=== PATIENT | female | born 1945 | race Caucasian/White ===

== ENCOUNTER 2018-12-12 12:19 | Inpatient (IN) | payer MEDICARE, OTHER ==
[~2018-12-12] VITALS: Ht 162.6 cm; Wt 77.6 kg
[2018-12-12] MEDS ORDERED: ALEN70TA3 GT (12:40)
[2018-12-12] MEDS ORDERED: MULT-24 GT (12:40)
[2018-12-12] MEDS ORDERED: ACET-2605 GT (12:40)
[2018-12-12] MEDS ORDERED: DOCU50LI GT (12:40)
[2018-12-12] MEDS ORDERED: ACET650S26 GT (12:40)
[2018-12-12] MEDS ORDERED: NA P133E RC (12:40)
[2018-12-12] MEDS ORDERED: SENN-168 GT (12:40)
[2018-12-12] MEDS ORDERED: TRAM50TA2 GT (12:40)
[2018-12-12] MEDS ORDERED: BISA10SU8 RC (12:40)
[2018-12-12] MEDS ORDERED: BACL10TA GT (12:40)
[2018-12-12] MEDS ORDERED: ZINC220C8 GT (12:40)
[2018-12-12] MEDS ORDERED: LACT-96 GT (12:40)
[2018-12-12] MEDS ORDERED: ACID1TAB12 GT (12:40)
[2018-12-12] MEDS ORDERED: IPRA3AMP23 IH (12:40)
[2018-12-12] MEDS ORDERED: AMIN30LI27 GT (12:40)
[2018-12-12] MEDS ORDERED: VIT500LI GT (12:40)
[2018-12-12] MEDS ORDERED: VITA100D6 GT (12:40)
--- NOTE | 2018-12-12 12:49 | NUR ---
CALLED FOR TELE BED
[2018-12-12] MEDS ORDERED: IV NS 0.9% 1,000 ML BAG IV ONE (13:00)
[2018-12-12 13:12] LABS: BASOPHILS # (AUTO) 0.1 /CMM (0.0-0.2); BASOPHILS % (AUTO) 0.4 % (0.0-2.0); HEMATOCRIT 35 % (33-45); HEMOGLOBIN 11.6 g/dL (11.5-14.8); LYMPHOCYTES # (AUTO) 0.8 /CMM (0.8-4.8); LYMPHOCYTES % (AUTO) 4.8 % (20.0-44.0); MEAN CORPUSCULAR HGB CONC 33 g/dl (31.0-36.0); MEAN CORPUSCULAR VOLUME 93 fL (82-100); MONOCYTES # (AUTO) 0.8 /CMM (0.1-1.30); MONOCYTES % (AUTO) 4.8 % (2.0-12.0); PLATELET COUNT (AUTO) 216 /CMM (150-450); RED BLOOD CELL COUNT(AUTO) 3.74 MIL/uL (4.0-5.2); WHITE BLOOD COUNT (AUTO) 16.7 K/uL (4.3-11.0)
[2018-12-12 13:18] LABS: CALCIUM, SERUM 8.7 mg/dL (8.5-10.1); CARBON DIOXIDE 27 mmol/L (21-32); CHLORIDE 103 mmol/L (98-107); CREATININE 0.8 mg/dL (0.6-1.3); GLUCOSE 128 mg/dL (74-106); SODIUM SERUM 141 mmol/L (136-145); UREA NITROGEN, BLOOD 43 mg/dL (7-18)
[2018-12-12 13:25] LABS: APPEARANCE,URINE Clear (CLEAR); BILIRUBIN,URINE Negative (NEGATIVE); BLOOD, URINE Negative Ery/uL (NEGATIVE); COLOR,URINE Yellow (YELLOW); KETONES,URINE Negative (NEGATIVE); LEUKOCYTE ESTERASE ,URINE Negative (NEGATIVE); NITRITE, URINE Negative (NEGATIVE); PH,URINE 5.5 (5.0-8.0); PROTEIN,URINE 100 mg/dl (NEGATIVE); UGLUCOSE Negative (NEGATIVE); UROBILINOGEN,URINE 0.2 EU/dL (0.2)
[2018-12-12 13:36] LABS: BACTERIA,URINE Few /HPF (None Seen)
[2018-12-12 13:37] LABS: RBC,URINE 0-3 /HPF (0-2); SQUAMOUS EPITHELIAL CELL,UR Rare /HPF (None Seen)
[2018-12-12 13:39] LABS: ALANINE AMINOTRANSFERASE 28 U/L (12-78); ALBUMIN 3.2 g/dL (3.4-5.0); ALKALINE PHOSPHATASE 114 U/L (46-116); ASPARTATE AMINOTRANSFERASE 19 U/L (15-37); BILIRUBIN,DIRECT 0.1 mg/dL (0.0-0.2); BILIRUBIN,TOTAL 0.2 mg/dL (0.2-1.0); TOTAL PROTEIN, SERUM 7.9 g/dL (6.4-8.2)
--- NOTE | 2018-12-12 13:41 | NUR ---
GOT BED [id number]
--- NOTE | 2018-12-12 13:41 | NUR ---
AGUSTIN BLUM [phone] PAGED
--- NOTE | 2018-12-12 14:16 | NUR ---
REPORT GIVEN TO JEET RN FOR OSCAR; PT WILL BE TRANSPORTED TO 3RD FLOOR VIA ACLS PROTOCOL
[2018-12-12 16:00] VITALS: BP 133/88
--- NOTE | 2018-12-12 16:00 | NUR ---
ms rn received on bed,nonverbal patient,came in w/ dx of high wbc,not in any form of distress,respirations even and unlabored,no sob noted, lungs are diminished, abdomen soft positive bowel sounds, no s/s of infection noted. bilateral lower extremities contracted,will monitor patient's condition.all needs attended.
--- NOTE | 2018-12-12 18:00 | NUR ---
ms rn was seen by dr. davey gray/ orders made and carried out.
[2018-12-12] MEDS: IV NS 0.9% 1,000 ML IV SCH (18:06)
--- NOTE | 2018-12-12 18:52 | NUR ---
MS RN ON BED, NO DISTRESS NOTED ALL NEEDS ATTENDED.
--- NOTE | 2018-12-12 19:50 | NUR ---
RN NOTES RECEIVED PATIENT, RESTING COMFORTABLY, NON VERBAL, NOT IN ANY FORM OF DISTRESS, KEPT CLEAN DRY AND COMFORTABLE, ALL SAFETY MEASURES IN PLACED, BED IN LOW LOCKED POSITION, ASPIRATION PRECAUTION OBSERVED, WILL CONTINUE TO MONITOR ACCORDINGLY.
[2018-12-12 20:00] VITALS: BP 119/74
[2018-12-12] MEDS ORDERED: CEFTRIAXONE 1 G in IV D5W 50 ML IV SCH (20:00)
[2018-12-12] MEDS: DOXYCYCLINE HYCLATE (100 MG) 100 MG TABLET GT SCH (21:36)
--- NOTE | 2018-12-12 21:40 | NUR ---
RN NOTES NO ABDOMINAL DISTENTION NOTED, STARTED GT FEEDING AT 21:40, WILL CONTINUE TO MONITOR.
[2018-12-12] MEDS: JEVITY 1.2 CAL 1,000 ML BOTTLE GT PRN (21:49)
[2018-12-12] MEDS ORDERED: CEFTRIAXONE 1 G VIAL ONE (22:22)
[2018-12-13 01:03] VITALS: BP 111/69
[2018-12-13 04:00] VITALS: BP 114/80
[2018-12-13] MEDS: IV NS 0.9% 1,000 ML IV SCH ×2 (06:10→21:50)
--- NOTE | 2018-12-13 07:15 | NUR ---
TELE/RN NOTE THE PATIENT IS RECEIVED IN BED. NOT ALERT OR ORIENTED. PATIENT IS NON-VERBAL. IN ROOM AIR. NO MANIFESTATION OF SOB. RESPIRATION REGULAR AND UNLABORED. IN NO APPARENT DISTRESS. EXTERNAL TELE BOX READING SR 97. RAC G 20 PATENT AND NORMAL SALINE INFUSING AT 75ML/HR. NO S/S INFILTRATION NOTED. GT FEEDING ON JEVITY 1.2 AT 75ML/HR. ABDOMEN SOFT AND NON-DISTENDED. ACTIVE BOWEL SOUNDS NOTED IN ALL 4 QUADS. BED LOW AND LOCKED. SIDE RAILS UP X3. CALL LIGHT WITHIN REACH. WILL CONTINUE TO MONITOR.
--- NOTE | 2018-12-13 07:29 | NUR ---
RN NOTES PATIENT, RESTING COMFORTABLY, NON VERBAL, NOT IN ANY FORM OF DISTRESS, KEPT CLEAN DRY AND COMFORTABLE, ALL SAFETY MEASURES IN PLACED, BED IN LOW LOCKED POSITION, ASPIRATION PRECAUTION OBSERVED, ENDORSED TO AM NURSE FOR CONTINUITY OF CARE.
[2018-12-13 08:00] VITALS: BP 128/76
[2018-12-13] MEDS: DOXYCYCLINE HYCLATE (100 MG) 100 MG TABLET GT SCH (08:32)
[2018-12-13 09:00] VITALS: BP 128/67
--- NOTE | 2018-12-13 11:57 | NUR ---
WOUND CARE CONSULT: PT PRESENTS WITH MULTIPLE SKIN ISSUES AND WOUNDS, PRESENT ON ADMISSION INCLUDING STAGE 2 ULCERS TO LEFT BUTTOCK AND SACRUM, LARGE WOUND TO RT FOREARM, LOOSE RT THUMBNAIL WITH DISTAL RAISED LESION, FOOT WOUNDS. RECOMMEND DPM AND SURGICAL CONSULTS. RECOMMENDATIONS MADE FOR WOUND CARE AND SKIN PROTECTION. DISCUSSED WITH NURSING STAFF. FIRST STEP LOW AIRLOSS MATTRESS ORDERED. CURRENT MARYANN SCORE IS 11. PT NOTED TO BE INCONTINENT AND IMMOBILE WITH SEVERE LOWER EXTREMITY CONTRACTURES. Addendum: 12/13/18 at 1200 by DARLINE LINDSEY WNDNU Amended: Links added. Addendum: 12/13/18 at 1201 by DARLINE LINDSEY WNDNU WILL SEE PRN. ANN IN AGREEMENT WITH PLAN OF CARE.
[2018-12-13] MEDS ORDERED: MISCELLANEOUS MED 1 EA EA GT PRN (12:00)
[2018-12-13] MEDS ORDERED: NA PHOS,M-B/NA PHOS,DI-BA 1 EA ENEMA RC PRN (12:00)
[2018-12-13] MEDS ORDERED: ACETAMINOPHEN 650 MG/20.3 ML UDC GT PRN (12:00)
[2018-12-13] MEDS ORDERED: IPRATROPIUM NEB FS 0.5 MG/2.5 ML AMPUL.NEB NEB PRN (12:00)
[2018-12-13] MEDS ORDERED: BISACODYL SUPP (10 MG) 10 MG/SUPP.RECT SUPP.RECT RC PRN (12:00)
[2018-12-13] MEDS ORDERED: ALBUTEROL FS 2.5 MG/0.5 ML VIAL.NEB NEB PRN (12:00)
[2018-12-13] MEDS: BACLOFEN (10 MG) 10 MG TABLET GT SCH ×2 (12:54→16:42)
[2018-12-13] MEDS: Z GUARD REMEDY 2 OZ OINT TP SCH (13:07)
[2018-12-13] MEDS: HYDROGEL DRESSING 90 GM TUBE TP SCH (13:07)
[2018-12-13] MEDS ORDERED: FEE PK DOSING 1 MIN EA MC ONE (15:49)
[2018-12-13 16:00] VITALS: BP 130/74
[2018-12-13] MEDS ORDERED: VANCOMYCIN 1 GM in IV D5W 250 ML IV SCH (16:00)
[2018-12-13] MEDS: PROSOURCE / PROSTAT (PYXIS) 30 ML UDC GT SCH (16:42)
--- NOTE | 2018-12-13 18:58 | NUR ---
MS/RN NOTE THE PATIENT NOT NON-VERBAL, NON ALERT OR ORIENTED. IN ROOM AIR AND SATURATION IS AT 96%. NO MANIFESTATION OF DISTRESS NOTED. RAC G 20 PATENT AND NORMAL SALINE INFUSING AT 75ML/HR AND NO S/S INFILTRATION NOTED. THE PATIENT TOLERATED JEVITY 1.2 FEEDING 75ML/HR WITH NO RESIDUAL. ABDOMEN SOFT AND NON-DISTENDED. GOOD AND GENTLE SKIN CARE RENDERED. ALL NEEDS ATTENDED AND ANTICIPATED. BED LOW AND LOCKED. SIDE RAILS UP X3. CALL LIGHT WITHIN REACH. WILL ENDORSE TO INNOVATION ANALYST.
--- NOTE | 2018-12-13 19:50 | NUR ---
OIL DRILLER NOTE: PATIENT RESTING IN BED, NO ACUTE DISTRESS NOTED. BREATHING EVEN AND UNLABORED, NO SOB NOTED. IV TO RAC IN PLACE, INFUSING NS AT 75ML/HR. TELE READING SR 70. G-TUBE IN PLACE, WITH 5ML RESIDUAL. HOB ELEVATED. BED LOCKED AND IN LOWEST POSITION, CALL LIGHT IN REACH. WILL CONTINUE TO MONITOR.
[2018-12-13 20:00] VITALS: BP 118/81
[2018-12-13] MEDS: CEFAZOLIN 1 GM in IV D5W 50 ML IV SCH (21:50)
[2018-12-13] MEDS: DOCUSATE SODIUM LIQ 100 MG/10 ML UDC GT SCH (21:50)
[2018-12-13] MEDS: SENNOSIDES 8.6 MG TABLET GT SCH (21:50)
--- NOTE | 2018-12-13 22:30 | NUR ---
MS RN NOTE: PATIENT HAVING LOOSE BM, COLACE AND SENOKOT HELD AT THIS TIME. WILL CONTINUE TO MONITOR.
[2018-12-14] MEDS: JEVITY 1.2 CAL 1,000 ML BOTTLE GT PRN (02:19)
[2018-12-14] MEDS: CEFAZOLIN 1 GM in IV D5W 50 ML IV SCH ×3 (04:45→21:43)
[2018-12-14] MEDS: VANCOMYCIN 0.75 GM in IV D5W 250 ML IV SCH ×2 (05:53→17:32)
--- NOTE | 2018-12-14 06:10 | NUR ---
MS RN NOTE: PATIENT RESTING IN BED, NO ACUTE DISTRESS NOTED. BREATHING EVEN AND UNLABORED, NO SOB NOTED. IV TO RAC IN PLACE, INFUSING NS AT 75ML/HR. G-TUBE IN PLACE, INFUSING JEVITY AT 75ML/HR, HOB ELEVATED. BED LOCKED AND IN LOWEST POSITION, CALL LIGHT IN REACH. WILL ENDORSE TO DAY NURSE TO CONTINUE WITH PLAN OF CARE.
[2018-12-14 06:57] LABS: CALCIUM, SERUM 8.3 mg/dL (8.5-10.1); CARBON DIOXIDE 25 mmol/L (21-32); CHLORIDE 112 mmol/L (98-107); CREATININE 0.5 mg/dL (0.6-1.3); GLUCOSE 126 mg/dL (74-106); POTASSIUM 3.4 mmol/L (3.5-5.1); SODIUM SERUM 147 mmol/L (136-145); UREA NITROGEN, BLOOD 19 mg/dL (7-18)
--- NOTE | 2018-12-14 07:45 | NUR ---
MS RN OPENING NOTES PT IN BED. A/O X1. TOLERATING RA, BREATHING EVEN AND UNLABORED. HOB ELEVATED; ASPIRATION PRECAUTION. NO SIGNS OF PAIN NOTED AT THIS MOMENT. IVF OF NS AT 75ML/HR TO RAC G22, TOLERATING WELL. GT/JEVITY FEEDING AT 75ML/HR, AND FLUSHED WITH WATER, INFUSING WELL. HAD 3X DIARRHEA LAST NIGHT, SPECIMEN SENT TO LABS. FOR WOUND DEBRIDEMENT. DR BLUM CAME IN AND SAW PT ON MORNING ROUNDS, LOOKING FORWARD FOR WOUND DEBRIDEMENT. KEPT BED IN LOWEST, LOCKED POSITION WITH SR X3. CALL LIGHT WITHIN REACH. WILL CONTINUE PLAN OF CARE.
[2018-12-14 08:00] VITALS: BP 143/90
[2018-12-14] MEDS ORDERED: MULTIVITAMINS,THERAGRAN 1 UDTAB TABLET GT SCH (09:00)
[2018-12-14] MEDS ORDERED: ZINC SULFATE 220 MG CAPSULE GT SCH (09:00)
[2018-12-14] MEDS ORDERED: LIDOCAINE 1%-EPI 1:100,000 20 ML VIAL IJ ONE (09:00)
[2018-12-14] MEDS: Z GUARD REMEDY 2 OZ OINT TP SCH (09:35)
[2018-12-14] MEDS: ASCORBIC ACID 500 MG TABLET GT SCH (09:36)
[2018-12-14] MEDS: ACIDOPHILUS/BULGARICUS 1 EACH TAB.CHEW GT SCH (09:36)
[2018-12-14] MEDS: BACLOFEN (10 MG) 10 MG TABLET GT SCH ×3 (09:36→17:25)
[2018-12-14] MEDS: HYDROGEL DRESSING 90 GM TUBE TP PRN (09:36)
[2018-12-14] MEDS: TRAMADOL HCL 50 MG TABLET GT SCH (09:37)
[2018-12-14] MEDS: PROSOURCE / PROSTAT (PYXIS) 30 ML UDC GT SCH ×2 (09:39→17:25)
[2018-12-14] MEDS: HYDROGEL DRESSING 90 GM TUBE TP SCH (09:52)
[2018-12-14] MEDS ORDERED: POTASSIUM CHLORIDE 20 MEQ POWDER PACKET GT SCH (11:30)
[2018-12-14] MEDS: IV NS 0.9% 1,000 ML IV SCH ×2 (12:12→22:59)
--- NOTE | 2018-12-14 13:24 | NUR ---
MS RN NOTES RECEIVED CALL FROM [facility], SPOKE TO RAHEEM. STOOL SPECIMEN THAT WAS SENT TO THEM RESULTED POSITIVE FOR CDIFF. SEN AND MD ODEN MADE MADE AWARE. ORDERED VANCO 250MG Q6H. CONTACT PRECAUTION INITIATED. WILL CONTINUE TO MONITOR.
[2018-12-14] MEDS ORDERED: SILVER NITRATE APPLICATOR 1 EA BOX TP STA (15:42)
[2018-12-14 16:00] VITALS: BP 134/79
--- NOTE | 2018-12-14 16:13 | NUR ---
MS RN NOTES SEEN BY TRESTLEMAN FRIDA ROOT, DEBRIDED RIGHT FOREARM WOUND WITH NECROTIC TISSUE. SPECIMEN TO BE BROUGHT TO LAB FOR PATHOLOGY. AND TRESTLEMAN SWABBED IT FOR CULTURE. DRESSING IN PLACE AND INTACT. WILL CONTINUE TO MONITOR.
--- NOTE | 2018-12-14 16:30 | NUR ---
MS RN NOTE TOOTH CUTTER CLUTCH DEBRIDED THE BUTTOCK WOUND WELL. NO SPECIMEN WAS SENT TO THE LAB. WILL ENDORSE TO NEXT SHIFT NURSE AND WILL CONTINUE TO MONITOR.
[2018-12-14] MEDS: VANCOMYCIN HCL 125 MG/2.5 ML ORAL.SUSP GT SCH ×2 (17:32→23:21)
--- NOTE | 2018-12-14 19:04 | NUR ---
MS RN CLOSING NOTES PT IN BED. A/O X1. TOLERATING RA, BREATHING EVEN AND UNLABORED. HOB ELEVATED. NO SIGNS OF PAIN NOTED AT THIS MOMENT. IVF OF NS AT 75ML/HR TO RAC G22, TOLERATING WELL. GT/JEVITY FEEDING TURNED OFF AT 1750, AND FLUSHED WITH WATER. ALL NEEDS AND CARE ATTENDED. CONTACT ISOLATION OBSERVED FOR CDIFF; HAD 3X DIARRHEA THIS MORNING SHIFT. S/P WOUND DEBRIDEMENT TO RFA AND BUTTOCK CREASE. ON BED IN LOWEST, LOCKED POSITION WITH SR X2. CALL LIGHT WITHIN REACH. WILL ENDORSE TO NEXT SHIFT NURSE FOR [facility].
--- NOTE | 2018-12-14 19:20 | NUR ---
MS RN OPENING NOTES Received patient A/O x1, responsive to stimuli, non verbal. With GTF on hold per schedule. With patent peripheral IV line infusing well as ordered. With RFA covered with clean, dry and intact dressing. On RA, no SOB/respiratory distress noted. No discomfort noted at this time. Kept bed low and locked. Call light at bedside. Will continue to monitor accordingly.
[2018-12-14 20:00] VITALS: BP 138/78
[2018-12-14] MEDS: DOCUSATE SODIUM LIQ 100 MG/10 ML UDC GT SCH (22:19)
[2018-12-14] MEDS: SENNOSIDES 8.6 MG TABLET GT SCH (22:19)
[2018-12-15] VITALS: BP 130/79
[2018-12-15] MEDS: JEVITY 1.2 CAL 1,000 ML BOTTLE GT PRN (02:48)
[2018-12-15 04:00] VITALS: BP 138/102
[2018-12-15 04:38] LABS: CALCIUM, SERUM 8.1 mg/dL (8.5-10.1); CARBON DIOXIDE 25 mmol/L (21-32); CHLORIDE 106 mmol/L (98-107); CREATININE 0.6 mg/dL (0.6-1.3); GLUCOSE 127 mg/dL (74-106); POTASSIUM 3.1 mmol/L (3.5-5.1); SODIUM SERUM 142 mmol/L (136-145); UREA NITROGEN, BLOOD 13 mg/dL (7-18)
[2018-12-15] MEDS: CEFAZOLIN 1 GM in IV D5W 50 ML IV SCH ×3 (05:15→20:46)
[2018-12-15] MEDS: VANCOMYCIN 0.75 GM in IV D5W 250 ML IV SCH ×2 (05:15→17:25)
[2018-12-15] MEDS: VANCOMYCIN HCL 125 MG/2.5 ML ORAL.SUSP GT SCH ×4 (05:16→23:32)
--- NOTE | 2018-12-15 06:54 | NUR ---
MS RN CLOSING NOTES Patient asleep at this time, on RA, no SOB/respiratory distress noted. With patent NGT infusing well @ 75ml/hr as ordered. No abdominal distention noted, No N/V. Still with diarrhea noted. All due meds given as ordered. Wound care done as ordered. All nursing needs attended. Kept bed low and locked, side rails up. Call light at bedside. Endorsed.
[2018-12-15 08:00] VITALS: BP 135/85
--- NOTE | 2018-12-15 08:00 | NUR ---
MS RN OPEN NOTE PT SEEN IN BED. ALERT AND AWAKE RESPONDS TO TOUCH, TOLERATING ROOM AIR. IN NO APPARENT DISTRESS. IV SN INFUSING AT 75 ML/HR. JEVITY INFUSING AT 75 ML PER HOUR. RESIDUAL CHECK PRODUCED LESS THEN 30ML. RFA WOUND DRESSING HAS SMALL AMOUNT OF SANGUINOUS DRAINAGE. BED DOWN AND IN LOCKED POSITION SR X3 CALL LIGHT IN REACH WILL CONT PLAN OF CARE.
[2018-12-15] MEDS: ACIDOPHILUS/BULGARICUS 1 EACH TAB.CHEW GT SCH (09:07)
[2018-12-15] MEDS: ASCORBIC ACID 500 MG TABLET GT SCH (09:07)
[2018-12-15] MEDS: BACLOFEN (10 MG) 10 MG TABLET GT SCH ×3 (09:08→17:24)
[2018-12-15] MEDS: TRAMADOL HCL 50 MG TABLET GT SCH (09:09)
[2018-12-15] MEDS: Z GUARD REMEDY 2 OZ OINT TP SCH (09:11)
[2018-12-15] MEDS: HYDROGEL DRESSING 90 GM TUBE TP PRN (09:12)
[2018-12-15] MEDS: HYDROGEL DRESSING 90 GM TUBE TP SCH (09:13)
[2018-12-15] MEDS: PROSOURCE / PROSTAT (PYXIS) 30 ML UDC GT SCH ×2 (09:14→17:24)
[2018-12-15] MEDS: POTASSIUM CHLORIDE 20 MEQ TAB.PRT.SR PO SCH ×2 (11:14→12:13)
[2018-12-15] MEDS: IV NS 0.9% 1,000 ML IV SCH (12:19)
[2018-12-15 16:00] VITALS: BP 132/81
--- NOTE | 2018-12-15 18:20 | NUR ---
MS/RN NOTE THE PATIENT IN BED. NON-VERBAL. IN NO APPARENT DISTRESS. IN ROOM AIR AND SATURATION IS AT 98%. IN NO APPARENT DISTRESS. RAC G 20 PATENT AND NORMAL SALINE INFUSING AT 75ML/HR. NO S/S INFILTRATION NOTED. PATIENT HAD 2 LARGE BM (WATERY). PATIENT TOLERATED GT FEEDING WELL. ABDOMEN SOFT AND NON-DISTENDED. GOOD AND GENTLE SKIN CARE RENDERED. KEPT CLEAN AND COMFORTABLE. ALL NEEDS ATTENDED AND ANTICIPATED. BED LOW AND LOCKED. SIDE RAILS UP X3 AND PADDED. CALL LIGHT WITHIN REACH. WILL ENDORSE TO MODULAR HOME CREW MEMBER.
--- NOTE | 2018-12-15 19:30 | NUR ---
RN MS OPENING NOTES RECEIVED PATIENT IN BED ASLEEP. AROUSABLE TO TOUCH. ALERT AND ORIENTED X0, PATIENT IS NONVERBAL. BREATHING EVEN AND UNLABORED. NO SOB NOTED. TOLERATING ROOM AIR. NO S/S OF PAIN OR DISCOMFORT. NO FACIAL GRIMACING. IV ON RIGHT AC INTACT AND PATENT. SKIN DRY AND WARM TO TOUCH. AFEBRILE. DRESSINGS INTACT AND DRY. GTUBE INTACT AND PATENT. FEEDING OFF AND WILL BE TURNED ON SCHEDULED TIME. ALL OTHER NEEDS ATTENDED TO. SAFETY MEASURES IN PLACE. CALL LIGHT WITHIN REACH. WILL CONTINUE TO MONITOR.
[2018-12-15 20:00] VITALS: BP 137/75
[2018-12-15] MEDS: DOCUSATE SODIUM LIQ 100 MG/10 ML UDC GT SCH (21:25)
[2018-12-15] MEDS: SENNOSIDES 8.6 MG TABLET GT SCH (21:25)
[2018-12-16] MEDS: IV NS 0.9% 1,000 ML IV SCH ×2 (01:29→04:30)
--- NOTE | 2018-12-16 01:30 | NUR ---
RN MS NOTES IV NS BAG SCANNED NON-ADMINISTERED DUE TO ONE ALREADY HANGED AND INFUSING. WILL REPLACE IF EMPTY.
[2018-12-16] MEDS: CEFAZOLIN 1 GM in IV D5W 50 ML IV SCH ×3 (04:31→21:06)
[2018-12-16] MEDS: JEVITY 1.2 CAL 1,000 ML BOTTLE GT PRN (04:42)
[2018-12-16] MEDS: VANCOMYCIN 0.75 GM in IV D5W 250 ML IV SCH ×2 (05:19→17:32)
[2018-12-16] MEDS: VANCOMYCIN HCL 125 MG/2.5 ML ORAL.SUSP GT SCH ×4 (06:06→23:07)
--- NOTE | 2018-12-16 06:25 | NUR ---
RN MS CLOSING NOTES PATIENT RESTING IN BED. NO ACUTE CHANGES THROUGHOUT SHIFT. BREATHING EVEN AND UNLABORED. NO SOB NOTED. TOLERATING ROOM AIR. NO S/S OF PAIN OR DISCOMFORT. NO FACIAL GRIMACING. IV ON RIGHT AC INTACT AND PATENT. SKIN DRY AND WARM TO TOUCH. AFEBRILE. DRESSINGS INTACT AND DRY. GTUBE INTACT AND PATENT AND INFUSING JEVITY 1.2 AT 75ML/HR. ALL OTHER NEEDS ATTENDED TO. KEPT CLEAN DRY AND COMFORTABLE. SAFETY MEASURES IN PLACE. CALL LIGHT WITHIN REACH. WILL ENDORSE TO ONCOMING NURSE FOR [facility].
[2018-12-16 06:51] LABS: CALCIUM, SERUM 8.7 mg/dL (8.5-10.1); CHLORIDE 109 mmol/L (98-107); CREATININE 0.5 mg/dL (0.6-1.3); GLUCOSE 121 mg/dL (74-106); POTASSIUM 3.6 mmol/L (3.5-5.1); SODIUM SERUM 146 mmol/L (136-145); UREA NITROGEN, BLOOD 14 mg/dL (7-18)
[2018-12-16 06:55] LABS: CARBON DIOXIDE 28 mmol/L (21-32)
--- NOTE | 2018-12-16 07:35 | NUR ---
RN MS OPENING NOTES Received patient on room air, no sob or ventilatory distress noted. Patient remains on GT feeding with jevity 1.2 cc from 2150 to 1750, able to flush gtube with no resistance. IVF remains at 75 mL/hour. Patient's vital sign is stable, patient unable to verbalize needs and does not respond to questions. Safety measures in place.
[2018-12-16 08:00] VITALS: BP 152/78
[2018-12-16] MEDS: ASCORBIC ACID 500 MG TABLET GT SCH (08:24)
[2018-12-16] MEDS: TRAMADOL HCL 50 MG TABLET GT SCH (08:24)
[2018-12-16] MEDS: ACIDOPHILUS/BULGARICUS 1 EACH TAB.CHEW GT SCH (08:24)
[2018-12-16] MEDS: PROSOURCE / PROSTAT (PYXIS) 30 ML UDC GT SCH ×2 (08:25→17:38)
[2018-12-16] MEDS: BACLOFEN (10 MG) 10 MG TABLET GT SCH ×3 (08:25→17:38)
[2018-12-16] MEDS: HYDROGEL DRESSING 90 GM TUBE TP SCH (08:36)
[2018-12-16] MEDS: Z GUARD REMEDY 2 OZ OINT TP SCH (08:38)
[2018-12-16] MEDS: SILVER SULFADIAZINE CREAM 25 GM TUBE TP SCH (08:58)
--- NOTE | 2018-12-16 15:56 | NUR ---
RN MS NOTES CLARIFIED IV FLUIDS ORDER FROM DR. BLUM, PER MD, PT TO CONTINUE ON IV FLUIDS ORDERED.
[2018-12-16 16:00] VITALS: BP 134/72
--- NOTE | 2018-12-16 18:13 | NUR ---
RN MS CLOSING NOTES Patient's IV placed at left hand with a 22 gauge. Patient's old IV at right AC accidentally out. Patient's new IV is infusing well with no blockage. Patient is turned and repositioned q2 hours. Gtube feeding tolerated well, no residuals noted. Medications given as order. Safety measures in place.
[2018-12-16] MEDS ORDERED: IV NS 0.9% 1,000 ML BAG IV PRN (19:00)
[2018-12-16 20:00] VITALS: BP 169/89
[2018-12-16] MEDS ORDERED: IV NS 0.9% 1,000 ML IV PRN (20:00)
--- NOTE | 2018-12-16 21:30 | NUR ---
RN INITIAL NOTES: RECEIVED REPORT FROM CINDY TORRES. PT IN BED, NON VERBAL, NO FACIAL GRIMACE NOTED, APPEARS CALM AND COMFORTABLE, IV ACCESS PATENT AND FLUSHING WELL, INFUSING WITH NS AT 75ML/HR. GTUBE IN PLACED, TURNED ON AT THIS TIME, WITH ORDER FOR JEVITY 1.2 AT 75ML/HR, ON AT 2150 AND OFF AT 1750. S/P WOUND DEBRIDEMENT (BUTTOCKS AND RIGHT ARM) BY ARIELLE GALICIA. DRESSING C/D/I, NO ACTIVE BLEEDING NOTED, OFFLOADED ON PILLOWS. PT ON CDIFF PRECAUTIONS. ON KCI MATTRESS, NOTED WITH CONTRACTED EXTREMITIES. SAFETY PRECAUTIONS FOR FALL INITIATED, CALL LIGHT IN REACH, WILL CONTINUE MONITORING PT.
[2018-12-16] MEDS: SENNOSIDES 8.6 MG TABLET GT SCH (21:38)
[2018-12-16] MEDS: DOCUSATE SODIUM LIQ 100 MG/10 ML UDC GT SCH (21:38)
--- NOTE | 2018-12-16 21:40 | NUR ---
RN NOTES: GTUBE PATENCY AND RESIDUAL CHECK, GTUBE ABLE TO FLUSH WITH WATER WITHOUT ANY RESISTANCE, SOFT ABDOMEN UPON PALPATION WITH ACTIVE BOWEL SOUND HEARD UPON AUSCULTATION. RESIDUAL OBTAINED 10ML.
[2018-12-16 22:16] VITALS: BP 144/79
--- NOTE | 2018-12-16 22:30 | NUR ---
RN INITIAL NOTES: RECEIVED REPORT FROM CINDY TORRES. PT IN BED, NON VERBAL, NO FACIAL GRIMACE NOTED, APPEARS CALM AND COMFORTABLE, IV ACCESS PATENT AND FLUSHING WELL, INFUSING WITH NS AT 75ML/HR. GTUBE IN PLACED, TURNED ON AT THIS TIME, WITH ORDER FOR JEVITY 1.2 AT 75ML/HR, ON AT 2150 AND OFF AT 1750. S/P WOUND DEBRIDEMENT (BUTTOCKS AND RIGHT ARM) BY ARIELLE GALICIA. DRESSING C/D/I, NO ACTIVE BLEEDING NOTED, OFFLOADED ON PILLOWS. PT ON CDIFF PRECAUTIONS. ON KCI MATTRESS, NOTED WITH CONTRACTED EXTREMITIES. SAFETY PRECAUTIONS FOR FALL INITIATED, CALL LIGHT IN REACH, WILL CONTINUE MONITORING PT. Addendum: 12/16/18 at 2302 by WAYNE JOHNSON RN DISREGARD ABOVE DOCUMENTATION WRONG TIME
[2018-12-17] MEDS: JEVITY 1.2 CAL 1,000 ML BOTTLE GT PRN ×2 (03:20→16:49)
[2018-12-17] MEDS: CEFAZOLIN 1 GM in IV D5W 50 ML IV SCH ×3 (04:05→21:37)
[2018-12-17] MEDS: VANCOMYCIN HCL 125 MG/2.5 ML ORAL.SUSP GT SCH ×4 (05:20→23:00)
[2018-12-17] MEDS: VANCOMYCIN 0.75 GM in IV D5W 250 ML IV SCH ×2 (05:20→16:15)
--- NOTE | 2018-12-17 06:31 | NUR ---
RN CLOSING NOTES: PT REMAINS NON VERBAL. IV ACCESS REMAINS PATENT AND FLUSHING WELL INFUSING WITH NS AT 75 ML/HR. GTUBE FEEDING REMAINS TO BE TOLERATED WELL BY PT, RESIDUAL OBTAINED 10ML. JEVITY 1.2 AT 75ML/HR INFUSING AT THIS TIME. ABDOMEN REMAINS SOFT TO TOUCH. WOUND DRESSING REMAINS C/D/I, NO ACTI VE BLEEDING NOTED, PILLOWS PLACED IN BETWEEN PT'S LEGS, PT HAS CONTRACTURES. VS REMAINS STABLE, NEEDS ATTENDED. SAFETY PRECAUTIONS FOR FALL REMAINS ENGAGED, CALL LIGHT IN REACH, WILL ENDORSE TO DAY RN FOR CONTINUITY OF CARE.
--- NOTE | 2018-12-17 07:33 | NUR ---
INITIAL PT IN BED, NON VERBAL, NO FACIAL GRIMACE NOTED, APPEARS CALM AND COMFORTABLE, IV ACCESS PATENT AND FLUSHING WELL, INFUSING WITH NS AT 75ML/HR. G-TUBE IN PLACED, TURNED ON AT THIS TIME, WITH ORDER FOR JEVITY 1.2 AT 75ML/HR, ON AT 2150 AND OFF AT 1750. S/P WOUND DEBRIDEMENT (BUTTOCKS AND RIGHT ARM) BY ARIELLE GALICIA. DRESSING C/D/I, NO ACTIVE BLEEDING NOTED, OFFLOADED ON PILLOWS. PT ON C-DIFF PRECAUTIONS. ON KCI MATTRESS, NOTED WITH CONTRACTED EXTREMITIES. SAFETY PRECAUTIONS FOR FALL INITIATED, CALL LIGHT IN REACH, WILL CONTINUE MONITORING PT.
[2018-12-17 07:39] LABS: BASOPHILS % (AUTO) 0.3 % (0.0-2.0); EOSINOPHILS % (AUTO) 6.1 % (0.0-6.0); HEMATOCRIT 30 % (33-45); HEMOGLOBIN 10.1 g/dL (11.5-14.8); LYMPHOCYTES # (AUTO) 1.9 /CMM (0.8-4.8); LYMPHOCYTES % (AUTO) 16.6 % (20.0-44.0); MEAN CORPUSCULAR HGB CONC 33 g/dl (31.0-36.0); MEAN CORPUSCULAR VOLUME 93 fL (82-100); MONOCYTES # (AUTO) 1.4 /CMM (0.1-1.30); MONOCYTES % (AUTO) 12.2 % (2.0-12.0); NEUTROPHILS # (AUTO) 7.3 /CMM (1.8-8.9); NEUTROPHILS % (AUTO) 64.8 % (43.0-81.0); PLATELET COUNT (AUTO) 235 /CMM (150-450); RED BLOOD CELL COUNT(AUTO) 3.28 MIL/uL (4.0-5.2); WHITE BLOOD COUNT (AUTO) 11.3 K/uL (4.3-11.0)
[2018-12-17 07:55] LABS: CALCIUM, SERUM 8.7 mg/dL (8.5-10.1); CARBON DIOXIDE 28 mmol/L (21-32); CHLORIDE 105 mmol/L (98-107); CREATININE 0.5 mg/dL (0.6-1.3); GLUCOSE 118 mg/dL (74-106); POTASSIUM 3.8 mmol/L (3.5-5.1); SODIUM SERUM 142 mmol/L (136-145); UREA NITROGEN, BLOOD 14 mg/dL (7-18)
[2018-12-17 08:00] VITALS: BP 142/108
[2018-12-17] MEDS: ASCORBIC ACID 500 MG TABLET GT SCH (08:29)
[2018-12-17] MEDS: HYDROGEL DRESSING 90 GM TUBE TP SCH (08:29)
[2018-12-17] MEDS: Z GUARD REMEDY 2 OZ OINT TP PRN ×2 (08:29→08:32)
[2018-12-17] MEDS: ACIDOPHILUS/BULGARICUS 1 EACH TAB.CHEW GT SCH (08:30)
[2018-12-17] MEDS: BACLOFEN (10 MG) 10 MG TABLET GT SCH ×3 (08:30→16:52)
[2018-12-17] MEDS: TRAMADOL HCL 50 MG TABLET GT SCH (08:30)
[2018-12-17] MEDS: PROSOURCE / PROSTAT (PYXIS) 30 ML UDC GT SCH ×2 (08:32→16:52)
[2018-12-17] MEDS: Z GUARD REMEDY 2 OZ OINT TP SCH (08:33)
[2018-12-17] MEDS: SILVER SULFADIAZINE CREAM 25 GM TUBE TP SCH (08:34)
[2018-12-17 16:00] VITALS: BP_SYST 121; BP_SYST 142; BP_DIAS 54; BP_DIAS 68
[2018-12-17 18:00] VITALS: BP 121/59
--- NOTE | 2018-12-17 18:23 | NUR ---
CLOSING PT REMAINS NON VERBAL. IV ACCESS REMAINS PATENT AND FLUSHING WELL INFUSING WITH NS AT TKO RATE. G-TUBE FEEDING REMAINS AND TOLERATED WELL BY PT, RESIDUAL OBTAINED 10ML. JEVITY 1.2 AT 75ML/HR INFUSING AT THIS TIME. ABDOMEN REMAINS SOFT TO TOUCH. WOUND DRESSING REMAINS C/D/I, NO ACTI VE BLEEDING NOTED, PILLOWS PLACED IN BETWEEN PT'S LEGS, PT HAS CONTRACTURES. VS REMAINS STABLE, NEEDS ATTENDED. SAFETY PRECAUTIONS FOR FALL REMAINS ENGAGED, CALL LIGHT IN REACH, WILL ENDORSE TO DAY RN FOR CONTINUITY OF CARE.
--- NOTE | 2018-12-17 19:20 | NUR ---
RN INITIAL NOTES: RECEIVED REPORT FROM KERRI TORRES. PT S/P WOUND DEBRIDEMENT (BUTTOCKS AND RIGHT ARM) DRESSING C/D/I, NO ACTIVE BLEEDING NOTED, OFFLOADED ON PILLOWS. NON VERBAL, AWAKE, NO FACIAL GRIMACE NOTED, APPEARS CALM AND COMFORTABLE, IV ACCESS PATENT AND FLUSHING WELL, ON HL. GTUBE IN PLACED, CURRENTLY OFF AT THIS TIME. WITH ORDER FOR JEVITY 1.2 AT 75ML/HR, ON AT 2150 AND OFF AT 1750. PT ON CDIFF PRECAUTIONS. ON KCI MATTRESS, NOTED WITH CONTRACTED EXTREMITIES. SAFETY PRECAUTIONS FOR FALL INITIATED, CALL LIGHT IN REACH, WILL CONTINUE MONITORING PT.
[2018-12-17 20:00] VITALS: BP 102/58
--- NOTE | 2018-12-17 20:00 | NUR ---
RN NOTES: GTUBE PATENT AND FLUSHING WELL, NO ACTIVE BLEEDING NOTED ON GTUBE SITE, ABDOMEN SOFT WITH ACTIVE BOWEL SOUND HEARD UPON AUSCULTATION . WILL CONTINUE MONITORING PT.
[2018-12-17] MEDS: SENNOSIDES 8.6 MG TABLET GT SCH (21:37)
[2018-12-17] MEDS: DOCUSATE SODIUM LIQ 100 MG/10 ML UDC GT SCH (21:37)
[2018-12-17 22:30] VITALS: BP 129/77
--- NOTE | 2018-12-17 22:37 | NUR ---
PRN TLENOL: , NOTED TO BE IN PAIN, FLACC SCALE UTILIZED, OBTAINED SCORE OF 4/10 PRN TYLENOL ADMINISTERED VIA GTUBE
[2018-12-18] MEDS: CEFAZOLIN 1 GM in IV D5W 50 ML IV SCH ×2 (04:06→12:36)
[2018-12-18] MEDS: VANCOMYCIN 0.75 GM in IV D5W 250 ML IV SCH (05:05)
[2018-12-18] MEDS: VANCOMYCIN HCL 125 MG/2.5 ML ORAL.SUSP GT SCH ×3 (05:06→17:11)
--- NOTE | 2018-12-18 05:25 | NUR ---
RN NOTES: ASSISTED FOLDER SEAMER IN PROVIDING BED BATH TO THE PT, WOUND DRESSING PERFORMED, PT REMAINS CONNECTED TO CONTINUOS PULSE OXIMETRY SOPO2 99-100%, HR 82, RR 17
--- NOTE | 2018-12-18 06:55 | NUR ---
RN CLOSING NOTES: PT REMAINS TO BE NON COMMUNICATIVE, ON 2L OXYGEN, REMAINS CONNECTED TO CONTINUOUS PULSE OXIMETRY SPO2 100% HR 86, APPEARS CALM AND COMFORTABLE, NO FACIAL GRIMACE NOTED. REMAINS WITH G-TUBE FEEDING JEVITY 1.2 AT 75ML/HR. LEFT HAND IV ACCESS REMAINS PATENT AND FLUSHING WELL, ON HL. BLE OFFLOADED. VS REMAINS STABLE, NEEDS ATTENDED. SAFETY PRECAUTIONS FOR FALL REMAINS ENGAGED, CALL LIGHT IN REACH, WILL ENDORSE TO DAY RN FOR CONTINUITY OF CARE.
--- NOTE | 2018-12-18 07:51 | NUR ---
MS RN NOTES PATIENT RECEIVED RESTING INSIDE ROOM. NON-VERBAL. BREATHING EVEN AND UNLABORED. NO ACUTE DISTRESS AT THIS TIME. NO FACIAL GRIMACE OR INDICATIONS OF PAIN NOTED AT THIS TIME. PATIENT CALM AND RELAXED. ONGOING GTF. GT IN PLACE AND PATENT. MAINTAINED ASPIRATION PRECAUTIONS. MAINTAINED ISOLATION PRECAUTIONS. WILL CONTINUE TO MONITOR. BED LOCKED AND IN LOW POSITION. BILATERAL UPPER SIDE RAILS UP AND LOCKED. CALL LIGHT WITHIN EASY REACH
[2018-12-18 08:00] VITALS: BP 145/70
[2018-12-18] MEDS: ASCORBIC ACID 500 MG TABLET GT SCH (08:56)
[2018-12-18] MEDS: PROSOURCE / PROSTAT (PYXIS) 30 ML UDC GT SCH ×2 (08:56→17:12)
[2018-12-18] MEDS: BACLOFEN (10 MG) 10 MG TABLET GT SCH ×3 (08:56→17:11)
[2018-12-18] MEDS: ACIDOPHILUS/BULGARICUS 1 EACH TAB.CHEW GT SCH (08:57)
[2018-12-18] MEDS: TRAMADOL HCL 50 MG TABLET GT SCH (08:57)
[2018-12-18] MEDS: Z GUARD REMEDY 2 OZ OINT TP SCH (08:58)
[2018-12-18] MEDS: SILVER SULFADIAZINE CREAM 25 GM TUBE TP SCH (08:58)
[2018-12-18] MEDS: HYDROGEL DRESSING 90 GM TUBE TP SCH (08:58)
[2018-12-18 10:21] LABS: CALCIUM, SERUM 9.1 mg/dL (8.5-10.1); CARBON DIOXIDE 29 mmol/L (21-32); CHLORIDE 106 mmol/L (98-107); CREATININE 0.5 mg/dL (0.6-1.3); GLUCOSE 112 mg/dL (74-106); POTASSIUM 3.9 mmol/L (3.5-5.1); SODIUM SERUM 143 mmol/L (136-145); UREA NITROGEN, BLOOD 16 mg/dL (7-18)
[2018-12-18 16:00] VITALS: BP 150/76
--- NOTE | 2018-12-18 19:32 | NUR ---
MS RN NOTES PATIENT RESTING INSIDE ROOM. SLEEPING, BREATHING EVEN AND UNLABORED. GTF OFF. TO RESUME AT 2150. PATIENT CALM AND RELAXED. NO CHANGES IN LOC NOTED AT THIS TIME. NO ACUTE DISTRESS NOTED. NO FACIAL GRIMACE. MAINTAINED ASPIRATION PRECAUTIONS. MAINTAINED ISOLATION PRECAUTIONS. PATIENT KEPT CLEAN, DRY AND COMFORTABLE. ASSISTED TO A COMFORTABLE POSITION Q2 WITH POSITIONING PILLOWS FOR CIRCULATION AND COMFORT. ENDORSED TO INCOMING SHIFT FOR [facility]SC[facility].
[2018-12-18 20:00] VITALS: BP 118/87
[2018-12-18] MEDS: DOCUSATE SODIUM LIQ 100 MG/10 ML UDC GT SCH (21:04)
[2018-12-18] MEDS: SENNOSIDES 8.6 MG TABLET GT SCH (21:04)
[2018-12-19] MEDS: VANCOMYCIN HCL 125 MG/2.5 ML ORAL.SUSP GT SCH ×4 (00:02→17:32)
[2018-12-19 06:35] LABS: CALCIUM, SERUM 8.9 mg/dL (8.5-10.1); CARBON DIOXIDE 30 mmol/L (21-32); CHLORIDE 105 mmol/L (98-107); CREATININE 0.5 mg/dL (0.6-1.3); GLUCOSE 110 mg/dL (74-106); POTASSIUM 3.8 mmol/L (3.5-5.1); SODIUM SERUM 141 mmol/L (136-145); UREA NITROGEN, BLOOD 20 mg/dL (7-18)
--- NOTE | 2018-12-19 06:48 | NUR ---
Lying in bed HOB up non verbal to director underwriter sales. o2 @ 2l N/c Jevity 1.2 infusing at 75 cchr no ridual noted N/s itko left hand 22 ga without difficulty. disposable briefs changed. Remains on Isolation for C-Diff. Stll having loose stool. Sacrum, Buttock, upper arm fingers dressings all C/D/I/ Siderails up Call light within reach. bed alarm on.
--- NOTE | 2018-12-19 07:08 | NUR ---
MS RN NOTES PATIENT IN BED NON VERBAL. HOB ELEVATED. NO ACUTE DISTRESS NOTED. BREATHING UNLABORED. NO SOB NOTED. DENIED ANY PAIN AT THIS TIME. IV ACCESS PATENT AND INTACT, NO REDNESS OR SWELLING NOTED. SAFETY MEASURES IN PLACE. CALL LIGHT WITHIN REACH. WILL CONTINUE TO MONITOR ACCORDINGLY.
[2018-12-19 08:00] VITALS: BP 130/70
[2018-12-19] MEDS: HYDROGEL DRESSING 90 GM TUBE TP SCH (08:40)
[2018-12-19] MEDS: Z GUARD REMEDY 2 OZ OINT TP SCH (08:40)
[2018-12-19] MEDS: SILVER SULFADIAZINE CREAM 25 GM TUBE TP SCH (08:41)
[2018-12-19] MEDS: TRAMADOL HCL 50 MG TABLET GT SCH (08:42)
[2018-12-19] MEDS: ASCORBIC ACID 500 MG TABLET GT SCH (08:42)
[2018-12-19] MEDS: BACLOFEN (10 MG) 10 MG TABLET GT SCH ×3 (08:43→16:42)
[2018-12-19] MEDS: ACIDOPHILUS/BULGARICUS 1 EACH TAB.CHEW GT SCH (08:43)
[2018-12-19] MEDS: PROSOURCE / PROSTAT (PYXIS) 30 ML UDC GT SCH ×2 (08:43→16:42)
[2018-12-19] MEDS ORDERED: ALENDRONATE 70 MG TABLET GT SCH (12:00)
[2018-12-19] MEDS: DAKINS QUARTER STRENGTH (0.125%) 480 ML BOTTLE TOP SCH (13:40)
[2018-12-19 16:00] VITALS: BP 134/76
--- NOTE | 2018-12-19 18:52 | NUR ---
MS RN NOTES PATIENT IN BED NON VERBAL. HOB ELEVATED. NO ACUTE DISTRESS NOTED. BREATHING UNLABORED. NO SOB NOTED. NO FACIAL GRIMACING NOTED. DUE MEDICATIONS GIVEN, NO ASE NOTED. NEEDS ATTENDED AND ANTICIPATED. KEPT CLEAN DRY AND COMFORTABLE. IV ACCESS PATENT AND INTACT, NO REDNESS OR SWELLING NOTED. TOLERATED GT FEEDING WELL, NO RESIDUAL NOTED. SAFETY MEASURES IN PLACE. CALL LIGHT WITHIN REACH. WILL CONTINUE TO MONITOR ACCORDINGLY. WILL ENDORSED TO NIGHT NURSE FOR CONTINUITY OF CARE.
--- NOTE | 2018-12-19 19:50 | NUR ---
RN INITIAL NOTES: RECEIVED REPORT FROM NEIL TORRES. NON VERBAL, AWAKE, NO FACIAL GRIMACE NOTED, APPEARS CALM AND COMFORTABLE, IV ACCESS PATENT AND FLUSHING WELL, ON HL.PT S/P WOUND DEBRIDEMENT (BUTTOCKS AND RIGHT ARM) DRESSING C/D/I, NO ACTIVE BLEEDING NOTED, OFFLOADED ON PILLOWS. GTUBE IN PLACED, CURRENTLY OFF AT THIS TIME. WITH ORDER FOR JEVITY 1.2 AT 75ML/HR, ON AT 2150 AND OFF AT 1750. ON KCI MATTRESS, NOTED WITH CONTRACTED EXTREMITIES. SAFETY PRECAUTIONS FOR FALL INITIATED, CALL LIGHT IN REACH, WILL CONTINUE MONITORING PT.
[2018-12-19 20:00] VITALS: BP 140/85
--- NOTE | 2018-12-19 22:07 | NUR ---
RN NOTES: NEW BAG OF JEVITY FEEDING ADMINISTERED AT THIS TIME, WILL TURNED THE FEEDING ON SCHEDULED, 75ML/HR
[2018-12-19] MEDS: JEVITY 1.2 CAL 1,000 ML BOTTLE GT PRN (22:12)
[2018-12-20] MEDS: VANCOMYCIN HCL 125 MG/2.5 ML ORAL.SUSP GT SCH ×4 (00:29→17:21)
--- NOTE | 2018-12-20 06:30 | NUR ---
RN CLOSING NOTES: PT REMAINS NON COMMUNICATIVE, APPEARS CALM AND COMFORTABLE, NO FACIAL GRIMACE NOTED. ON 2L OXYGEN, REMAINS CONNECTED TO CONTINUOUS PULSE OXIMETRY SPO2 93% HR 94, REMAINS WITH G-TUBE FEEDING JEVITY 1.2 AT 75ML/HR. LEFT HAND IV ACCESS REMAINS PATENT AND FLUSHING WELL, ON HL. DRESSING ON RFA REMAINS C/D/I, NO ACTIVE BLEEDING NOTED. BLE OFFLOADED. VS REMAINS STABLE, NEEDS ATTENDED. SAFETY PRECAUTIONS FOR FALL REMAINS ENGAGED, CALL LIGHT IN REACH, WILL ENDORSE TO DAY RN FOR CONTINUITY OF CARE.
[2018-12-20 08:00] VITALS: BP 133/83
--- NOTE | 2018-12-20 08:01 | NUR ---
MS RN NOTES PATIENT IN BED RESTING NO SOB OR ACUTE DISTRESS NOTED. PERIPHERAL IV INTACT PATIENT. BED IN LOW LOCKED POSITION, CALL LIGHT WITHIN REACH. WILL CONTINUE TO MONITOR
[2018-12-20] MEDS: TRAMADOL HCL 50 MG TABLET GT SCH (08:51)
[2018-12-20] MEDS: PROSOURCE / PROSTAT (PYXIS) 30 ML UDC GT SCH ×2 (08:51→17:21)
[2018-12-20] MEDS: ASCORBIC ACID 500 MG TABLET GT SCH (08:51)
[2018-12-20] MEDS: ACIDOPHILUS/BULGARICUS 1 EACH TAB.CHEW GT SCH (08:51)
[2018-12-20] MEDS: BACLOFEN (10 MG) 10 MG TABLET GT SCH ×3 (08:51→17:21)
[2018-12-20] MEDS: Z GUARD REMEDY 2 OZ OINT TP SCH (08:52)
[2018-12-20] MEDS: SILVER SULFADIAZINE CREAM 25 GM TUBE TP SCH (08:54)
[2018-12-20] MEDS: HYDROGEL DRESSING 90 GM TUBE TP SCH (08:54)
[2018-12-20] MEDS: DAKINS QUARTER STRENGTH (0.125%) 480 ML BOTTLE TOP SCH (08:54)
--- NOTE | 2018-12-20 09:00 | NUR ---
MS RN NOTES PATIENT SEEN BY DR. BLUM ORDERS TO DISCHARGE PATIENT IF [facility] HAS BED AVAILABLE. NOTED AND CARRIED OUT MEDICAL SAFETY DIRECTOR MADE AWARE.
[2018-12-20 16:00] VITALS: BP 140/80
--- NOTE | 2018-12-20 18:40 | NUR ---
MS RN NOTES PATIENT DISCHARGED TO [facility] IN STABLE CONDITION. REPORT GIVEN TO JOYCE TORRES AT [facility]. PERIPHERAL IV REMOVED WITH MINIMAL BLEEDING. ID BAND REMOVED. PATIENTS DAUGHTER NOTIFIED OF DISCHARGE. DISCHARGE PROTOCOL FOLLOWED. MD AWARE OF ALL ABNORMAL TEST. PATIENT TRANSFERRED TO [facility].
== END 2018-12-20 18:49 | DRG 853 ==
LOC: ER 12:20 → TELE 14:07 → MED 12-13 22:48
PROVIDERS: ADMIT Internal Medicine; ATTEND Internal Medicine
PROC: 0KB90ZZ Excision of Right Lower Arm and Wrist Muscle, Open Approach (ICD-10-PCS; principal; 2018-12-14)
PROC: 0HB6XZZ Excision of Back Skin, External Approach (ICD-10-PCS; 2018-12-14)
DX: A41.89 Other specified sepsis (principal); J69.0 Pneumonitis due to inhalation of food and vomit; R53.2 Functional quadriplegia; N17.9 Acute kidney failure, unspecified; A04.72 Enterocolitis due to Clostridium difficile, not specified as recurrent; G30.9 Alzheimer's disease, unspecified; F02.80 Dementia in other diseases classified elsewhere, unspecified severity, without behavioral disturbance, psychotic disturbance, mood disturbance, and anxiety; L89.890 Pressure ulcer of other site, unstageable; L89.620 Pressure ulcer of left heel, unstageable; S51.801A Unspecified open wound of right forearm, initial encounter; L89.152 Pressure ulcer of sacral region, stage 2; I10 Essential (primary) hypertension; E66.9 Obesity, unspecified; Z68.29 Body mass index [BMI] 29.0-29.9, adult; E78.5 Hyperlipidemia, unspecified; E87.6 Hypokalemia; I25.10 Atherosclerotic heart disease of native coronary artery without angina pectoris; M24.561 Contracture, right knee; M24.562 Contracture, left knee; M81.0 Age-related osteoporosis without current pathological fracture; Z66 Do not resuscitate; Z79.83 Long term (current) use of bisphosphonates; Z90.710 Acquired absence of both cervix and uterus; Z93.1 Gastrostomy status; R13.10 Dysphagia, unspecified; R65.20 Severe sepsis without septic shock
CPT/HCPCS: 36415; 71045-TC; 80048-TC; 80076-TC; 80202-TC; 81000-TC; 83605-TC; 84484-TC; 85025-TC; 85730-TC; 87040-TC; 87070-TC; 87086-TC; 87186-TC; 87400; 88305-TC; 88312-TC; 94799-TC; A4217; A6248; A6253; A6402; A6403; G0378; J0690; J0696; J3370; J3490; J7030; J7060